=== PATIENT | female | born 1970 | race American Indian/Alaskan Native ===

== ENCOUNTER 2017-01-19 15:15 | Emergency (ER) | payer OTHER ==
[2017-01-19 15:46] VITALS: BP 120/84
--- NOTE | 2017-01-19 22:45 | Emergency Department Report ---
Entered by RUTH STERN, acting as scribe for ELSA BURTON NP. - General Chief complaint: Skin/Abscess/Foreign Body Stated complaint: INSECT BITE Time Seen by Provider: 01/19/17 17:07 Source: patient Mode of arrival: Ambulatory Limitations: No Limitations - History of Present Illness Initial comments: This is a 46 year old female nontoxic, well nourished in appearance, no acute signs of distress, with no significant presents to ED with c/o bump in the medial lower eyelid. Patient stated symptoms occurred 2.5 weeks when it was bigger and now decreased in size but is still there. Patient denies any trauma. Patient denies any blurry vision, pus, drainage, fever, chills, headache, dizziness, chest pain, injury, or SOB. Patient is allergic to ASA. MD complaint: other (cyst) -: week(s) (2.5) Tetanus Up to Date: unsure Location: face (medial lower eyelid) Severity: moderate Severity scale (0 -10): 4 Quality: constant Consistency: constant Improves with: none Worsens with: none Context: none Associated symptoms: denies other symptoms Treatments Prior to Arrival: none - Related Data Home Medications Medication Instructions Recorded Confirmed Last Taken Sulfamethoxazole/Trimethoprim 1 each PO BID 11/21/16 11/21/16 11/20/16 [Sulfamethoxazole-Tmp Ss Tablet] Allergies Allergy/AdvReac Type Severity Reaction Status Date / Time aspirin Allergy Nausea Verified 11/15/16 10:58 Abscess Boil HPI - HPI Chief Complaint: Skin/Abscess/Foreign Body Stated Complaint: INSECT BITE Time Seen by Provider: 01/19/17 17:07 Home Medications: Home Medications Medication Instructions Recorded Confirmed Last Taken Sulfamethoxazole/Trimethoprim 1 each PO BID 11/21/16 11/21/16 11/20/16 [Sulfamethoxazole-Tmp Ss Tablet] Allergies/Adverse Reactions: Allergies Allergy/AdvReac Type Severity Reaction Status Date / Time aspirin Allergy Nausea Verified 11/15/16 10:58 ED Review of Systems Comment: All other systems reviewed and negative Constitutional: denies: chills, fever, weakness Eyes: eye pain. denies: eye discharge, vision change ENT: denies: ear pain, throat pain Respiratory: denies: cough, shortness of breath, wheezing Cardiovascular: denies: chest pain, palpitations Endocrine: no symptoms reported Gastrointestinal: denies: abdominal pain, nausea, vomiting, diarrhea Genitourinary: denies: urgency, dysuria, discharge Musculoskeletal: denies: back pain, joint swelling, arthralgia Skin: denies: rash, lesions Neurological: denies: headache, weakness, paresthesias Psychiatric: denies: anxiety, depression Hematological/Lymphatic: denies: easy bleeding, easy bruising ED Past Medical Hx - Past Medical History Hx Congestive Heart Failure: No Hx Diabetes: No Hx Arthritis: Yes (wrists) Hx Headaches / Migraines: Yes (migraines) Hx Seizures: Yes ("convulsion" years ago) Hx Asthma: No Hx COPD: No Hx HIV: No - Social History Smoking Status: Never Smoker Substance Use Type: None - Medications Home Medications: Home Medications Medication Instructions Recorded Confirmed Last Taken Type Sulfamethoxazole/Trimethoprim 1 each PO BID 11/21/16 11/21/16 11/20/16 History [Sulfamethoxazole-Tmp Ss Tablet] ED Physical Exam - General Limitations: No Limitations General appearance: alert, in no apparent distress - Head Head exam: Present: atraumatic, normocephalic - Eye Eye exam: Present: normal appearance, PERRL, EOMI. Absent: scleral icterus, conjunctival injection, nystagmus, periorbital swelling, periorbital tenderness Pupils: Present: normal accommodation. Absent: irregular - ENT ENT exam: Present: normal exam, normal orophraynx, mucous membranes moist, TM's normal bilaterally, normal external ear exam - Neck Neck exam: Present: normal inspection, full ROM. Absent: tenderness, meningismus, lymphadenopathy, thyromegaly - Respiratory Respiratory exam: Present: normal lung sounds bilaterally. Absent: respiratory distress, wheezes, rales, rhonchi, stridor, chest wall tenderness, accessory muscle use, decreased breath sounds, prolonged expiratory - Cardiovascular Cardiovascular Exam: Present: regular rate, normal rhythm, normal heart sounds. Absent: bradycardia, tachycardia, irregular rhythm, systolic murmur, diastolic murmur, rubs, gallop - GI/Abdominal GI/Abdominal exam: Present: soft, normal bowel sounds. Absent: distended, tenderness, guarding, rebound, rigid, diminished bowel sounds - Rectal Rectal exam: Present: deferred - Extremities Exam Extremities exam: Present: normal inspection, full ROM, normal capillary refill. Absent: tenderness, pedal edema, joint swelling, calf tenderness - Back Exam Back exam: Present: normal inspection, full ROM. Absent: tenderness, CVA tenderness (R), CVA tenderness (L), muscle spasm, paraspinal tenderness, vertebral tenderness, rash noted - Neurological Exam Neurological exam: Present: alert, oriented X3, CN II-XII intact, normal gait, reflexes normal - Psychiatric Psychiatric exam: Present: normal affect, normal mood - Skin Skin exam: Present: warm, dry, intact, normal color, other (1 cm fluid filled cyst to medial lower eyelid. Nontender. No pus or drainage. No sign of cellulitis or redness noted.). Absent: rash ED Course Vital Signs 01/19/17 15:42 Temperature 98.6 F Pulse Rate 79 Respiratory 18 Rate Blood Pressure 120/84 O2 Sat by Pulse 100 Oximetry - Reevaluation(s) Reevaluation #1: 01/19/17 18:21 Patient able speak full sentences with no signs of distress. ED Medical Decision Making - Medical Decision Making This is a 46-year-old female presents with cyst medial lower eyelid. There is no surrounding cellulitis or any abscess formation. Exam is consistent with cyst. Patient was notified to follow-up with a primary care doctor 3-5 days or if symptoms worsen such as increase in size, pus, drainage, or visual changes or worsening symptoms return to the ER as soon as possible. Patient was instructed to apply warm compresses. ED Disposition Clinical Impression: Cyst Disposition: DC-01 TO HOME OR SELFCARE Is pt being admited?: No Does the pt Need Aspirin: No Condition: Stable Instructions: Josiahazion (ED) Additional Instructions: follow-up with a primary care doctor 3-5 days or if symptoms worsen such as increase in size, pus, drainage, or visual changes or worsening symptoms return to the ER as soon as possible. Apply warm compressors to area. Referrals: PRIMARY CARE, [Primary Care Provider] - 3-5 Days MATHEUS HERNANDEZ MD [Staff Physician] - 3-5 Days NIRAV LEVINE MD [Staff Physician] - 3-5 Days [facility] [Outside] - 3-5 Days Forms: Work/School Release Form(ED) This documentation as recorded by the LEENA parra PEARL,accurately reflects the service I personally performed and the decisions made by JOSEPHINE chester MARTIN, NP.
== END 2017-01-19 18:29 | disposition home or self-care (01) ==
LOC: ED 15:15
DX: H02.829 Cysts of unspecified eye, unspecified eyelid (principal); Z79.82 Long term (current) use of aspirin; M19.90 Unspecified osteoarthritis, unspecified site; G43.909 Migraine, unspecified, not intractable, without status migrainosus
CPT/HCPCS: 99282

== ENCOUNTER 2022-01-02 10:44 | Inpatient (IN) | payer OTHER ==
[2022-01-02 11:38] LABS: Basophils # (Auto) 0.1 K/mm3 (0.0-0.1); Basophils % (Auto) 0.5 % (0.0-1.8); Eosinophils # (Auto) 0.2 K/mm3 (0.0-0.4); Eosinophils % (Auto) 1.3 % (0.0-4.3); Hematocrit 41.5 % (30.3-42.9); Hemoglobin 13.5 gm/dl (10.1-14.3); Lymphocytes # (Auto) 1.7 K/mm3 (1.2-5.4); Lymphocytes % (Auto) 14.4 % (13.4-35.0); Mean Corpuscular HGB Conc 32 % (30-34); Mean Corpuscular Volume 89 fl (79-97); Monocytes # (Auto) 1.4 K/mm3 (0.0-0.8); Monocytes % (Auto) 11.7 % (0.0-7.3); Platelet Count 308 K/mm3 (140-440); Red Blood Count 4.68 M/mm3 (3.65-5.03); Red Cell Distribution Width 13.9 % (13.2-15.2)
--- NOTE | 2022-01-02 12:01 | XRay Report ---
CHEST 2 VIEWS INDICATION / CLINICAL INFORMATION: chest pain with abd pain. FINDINGS: SUPPORT DEVICES: None. HEART / MEDIASTINUM: No significant abnormality. LUNGS / PLEURA: No significant pulmonary or pleural abnormality. No pneumothorax. ADDITIONAL FINDINGS: No significant additional findings. IMPRESSION: 1. No acute findings. Signer Name: Cornell Gilbert MD Signed: 01/02/2022 11:56 AM Workstation Name: [id number]
[2022-01-02 12:03] LABS: Alanine Aminotransferase 75 units/L (7-56); Albumin 4.6 g/dL (3.9-5); Blood Urea Nitrogen 7 mg/dL (7-17); Calcium 9.6 mg/dL (8.4-10.2); Hemolysis Index 37
[2022-01-02 12:08] LABS: BUN/Creatinine Ratio 10
[2022-01-02] MEDS ORDERED: ONDANSETRON 4 MG/2 ML INJ IV ONE (17:37)
[2022-01-02] MEDS ORDERED: MORPHINE 4 MG/1 ML INJ IV ONE (17:37)
[2022-01-02] MEDS ORDERED: SODIUM CHLORIDE 0.9% 1000 ML 1,000 ML IV ONE (17:37)
--- NOTE | 2022-01-02 17:38 | Emergency Department Report ---
ED General Adult HPI - General Chief complaint: Abdominal Pain Stated complaint: Epigastric abdominal pain and distention Time Seen by Provider: 01/02/22 17:24 Source: patient, RN notes reviewed Mode of arrival: Ambulatory Limitations: No Limitations - History of Present Illness Initial comments: The patient was evaluated in the emergency department for symptoms described in the history of present illness. He/she was evaluated in the context of the g lobal COVID-19 pandemic, which necessitated consideration that the patient might be at risk for infection with the virus that causes COVID-19. Institutional protocols and algorithms that pertain to the evaluation of patients at risk for COVID-19 are in a state of rapid change based on information released by regulatory bodies including the CDC and federal and state organizations. These policies and algorithms were followed during the patient's care in the emergency department. Please note that these policies, procedures and recommendations changed on a rapid basis. This is a pleasant and cooperative 51-year-old female who presents to the department today with complaint of diffuse abdominal pain, distention, nausea, with epigastric burning. Denies headache, neck pain, shortness of breath, dysuria, travel, surgery, immobilization, DVT and pulmonary embolism risk factors. Distant history of hysterectomy. Symptoms present for about 3 days -: days(s) Location: abdomen Severity scale (0 -10): 8 Consistency: constant Improves with: medication Worsens with: movement - Related Data Allergies Allergy/AdvReac Type Severity Reaction Status Date / Time aspirin Allergy Nausea Verified 01/02/22 11:12 ED Review of Systems ROS: Stated complaint: CHEST/STOMACH PAIN Other details as noted in HPI Constitutional: denies: fever Eyes: denies: eye discharge ENT: denies: epistaxis Respiratory: denies: cough Cardiovascular: denies: syncope Gastrointestinal: abdominal pain, nausea, vomiting Genitourinary: denies: dysuria Musculoskeletal: denies: back pain Neurological: denies: weakness Hematological/Lymphatic: denies: easy bleeding ED Past Medical Hx - Past Medical History Previous Medical History?: Yes Additional medical history: Uterine fibroids - Surgical History Past Surgical History?: Yes Additional Surgical History: Hysterectomy ED Physical Exam - General Limitations: No Limitations General appearance: alert, in no apparent distress - Head Head exam: Present: atraumatic, normocephalic - Eye Eye exam: Present: normal appearance, EOMI. Absent: nystagmus - ENT ENT exam: Present: normal exam, normal orophraynx, mucous membranes moist, normal external ear exam - Neck Neck exam: Present: normal inspection, full ROM. Absent: tenderness, meningismus - Respiratory Respiratory exam: Present: normal lung sounds bilaterally. Absent: respiratory distress, wheezes, rales, rhonchi, stridor, decreased breath sounds - Cardiovascular Cardiovascular Exam: Present: regular rate, normal rhythm, normal heart sounds. Absent: bradycardia, tachycardia, irregular rhythm, systolic murmur, diastolic murmur, rubs, gallop - GI/Abdominal GI/Abdominal exam: Present: soft, distended, tenderness, guarding, rebound. Absent: pulsatile mass - Extremities Exam Extremities exam: Present: normal inspection, full ROM, other (2+ pulses noted in the bilateral upper and lower extremities. There is no palpable cord. negative Homans sign. Muscular compartments are soft. The pelvis is stable.). Absent: pedal edema, calf tenderness - Back Exam Back exam: Present: normal inspection. Absent: tenderness, CVA tenderness (R), CVA tenderness (L), paraspinal tenderness, vertebral tenderness - Neurological Exam Neurological exam: Present: alert, oriented X3, other (No facial droop. Tongue midline. Extraocular movements intact bilaterally. Facial sensation intact to light touch in V1, V2, V3 distribution bilaterally. 5 and a 5 strength in 4 extremities. Sensation intact to light touch in 4 extremities.). Absent: motor sensory deficit - Psychiatric Psychiatric exam: Present: anxious - Skin Skin exam: Present: warm, dry, intact, normal color. Absent: rash ED Course Vital Signs 01/02/22 01/02/22 01/02/22 11:15 13:22 13:31 Temperature 98.2 F Pulse Rate 108 H Respiratory 22 Rate Blood Pressure 125/72 133/49 Blood Pressure 113/68 [Right] O2 Sat by Pulse 99 99 100 Oximetry 01/02/22 01/02/22 01/02/22 13:45 14:00 14:15 Temperature Pulse Rate Respiratory Rate Blood Pressure 127/73 123/71 123/87 Blood Pressure [Right] O2 Sat by Pulse 100 100 100 Oximetry 01/02/22 01/02/22 01/02/22 14:30 14:45 15:00 Temperature Pulse Rate Respiratory Rate Blood Pressure 123/87 119/76 117/80 Blood Pressure [Right] O2 Sat by Pulse 99 100 100 Oximetry 01/02/22 01/02/22 01/02/22 15:15 15:30 15:45 Temperature Pulse Rate Respiratory Rate Blood Pressure 131/68 131/68 123/72 Blood Pressure [Right] O2 Sat by Pulse 100 100 100 Oximetry 01/02/22 01/02/22 01/02/22 16:00 17:31 17:40 Temperature Pulse Rate 90 Respiratory 18 18 Rate Blood Pressure 116/65 Blood Pressure 116/65 [Right] O2 Sat by Pulse 100 100 100 Oximetry 01/02/22 01/02/22 01/02/22 18:00 19:59 20:00 Temperature Pulse Rate 90 81 Respiratory 18 18 Rate Blood Pressure 116/65 Blood Pressure 102/72 [Right] O2 Sat by Pulse 100 97 Oximetry - Reevaluation(s) Reevaluation #1: 01/02/22 18:49 Differential diagnosis, include but not limited to: Colitis, diverticulitis, obstruction, appendicitis, renal colic, perforated viscus Assessment and plan: 51-year-old female with diffuse abdominal pain, distention, nausea, very tender diffusely, most prominently in her right lower quadrant. N.p.o., head of bed elevation, aspiration precautions, obtain CT scan of the abdomen pelvis. Treat patient's symptoms aggressively. We discussed and reassess after initial data points and CT scan. I discussed this with the patient. She is agreeable to the plan of care. She is not tachypneic or hypoxic, she is low risk by Wells criteria for pulmonary embolism, and she endorses no DVT or PE risk factors. Denies exertional chest pain to myself, symptoms present for days, troponin negative x2, patient at low risk for major adverse cardiac event as per heart score 01/02/22 19:41 Patient is found to have evidence of acute cholecystitis on CT scan abdomen pelvis. This correlates with her physical examination and history. Antibiotics ordered. General surgery paged. Patient declines additional pain medication 01/02/22 20:20 patient is agreeable to admission and hospitalization. Additional pain medication ordered. Contacted general surgery on-call, Dr. Bartlett. Discussed the patient's history, physical, laboratory studies and imaging studies and clinical impression. He is in agreement with the plan of care. He will follow in consultation. Request lipase and amylase. We agree that ultrasound is unlikely to be of any clinical utility at this time. 01/02/22 20:[address] Miguel Sandhu, who will endorse cases to night time hospitalist ED Medical Decision Making - Lab Data Result diagrams: 01/02/22 11:26 01/02/22 11:26 Vital Signs 01/02/22 01/02/22 01/02/22 11:15 13:22 13:31 Temperature 98.2 F Pulse Rate 108 H Respiratory 22 Rate Blood Pressure 125/72 133/49 Blood Pressure 113/68 [Right] O2 Sat by Pulse 99 99 100 Oximetry 01/02/22 01/02/22 01/02/22 13:45 14:00 14:15 Temperature Pulse Rate Respiratory Rate Blood Pressure 127/73 123/71 123/87 Blood Pressure [Right] O2 Sat by Pulse 100 100 100 Oximetry 01/02/22 01/02/22 01/02/22 14:30 14:45 15:00 Temperature Pulse Rate Respiratory Rate Blood Pressure 123/87 119/76 117/80 Blood Pressure [Right] O2 Sat by Pulse 99 100 100 Oximetry 01/02/22 01/02/22 01/02/22 15:15 15:30 15:45 Temperature Pulse Rate Respiratory Rate Blood Pressure 131/68 131/68 123/72 Blood Pressure [Right] O2 Sat by Pulse 100 100 100 Oximetry 01/02/22 01/02/22 01/02/22 16:00 17:31 17:40 Temperature Pulse Rate 90 Respiratory 18 18 Rate Blood Pressure 116/65 Blood Pressure 116/65 [Right] O2 Sat by Pulse 100 100 100 Oximetry 01/02/22 18:00 Temperature Pulse Rate 90 Respiratory 18 Rate Blood Pressure 116/65 Blood Pressure [Right] O2 Sat by Pulse 100 Oximetry Lab Results 01/02/22 01/02/22 01/02/22 Range/Units 11:26 11:26 14:25 WBC 11.8 H (4.5-11.0) K/mm3 RBC 4.68 (3.65-5.03) M/mm3 Hgb 13.5 (10.1-14.3) gm/dl Hct 41.5 (30.3-42.9) % MCV 89 (79-97) fl MCH 29 (28-32) pg MCHC 32 (30-34) % RDW 13.9 (13.2-15.2) % Plt Count 308 (140-440) K/mm3 Lymph % (Auto) 14.4 (13.4-35.0) % [place] % (Auto) 11.7 H (0.0-7.3) % Eos % (Auto) 1.3 (0.0-4.3) % Baso % (Auto) 0.5 (0.0-1.8) % Lymph # (Auto) 1.7 (1.2-5.4) K/mm3 [place] # (Auto) 1.4 H (0.0-0.8) K/mm3 Eos # (Auto) 0.2 (0.0-0.4) K/mm3 Baso # (Auto) 0.1 (0.0-0.1) K/mm3 Seg Neutrophils % 72.1 H (40.0-70.0) % Seg Neutrophils # 8.5 H (1.8-7.7) K/mm3 Sodium 131 L (137-145) mmol/L Potassium 3.6 (3.6-5.0) mmol/L Chloride 92.1 L (98-107) mmol/L Carbon Dioxide 29 (22-30) mmol/L Anion Gap 14 mmol/L BUN 7 (7-17) mg/dL Creatinine 0.7 (0.6-1.2) mg/dL Estimated GFR > 60 ml/min BUN/Creatinine Ratio 10 % Glucose 134 H (65-100) mg/dL Calcium 9.6 (8.4-10.2) mg/dL Total Bilirubin 0.80 (0.1-1.2) mg/dL AST 73 H (5-40) units/L ALT 75 H (7-56) units/L Alkaline Phosphatase 125 (35-129) units/L Troponin T < 0.010 < 0.010 (0.00-0.029) ng/mL Total Protein 7.6 (6.3-8.2) g/dL Albumin 4.6 (3.9-5) g/dL Albumin/Globulin Ratio 1.5 % Urine RBC (Auto) (0.0-6.0) /HPF U Epithel Cells (Auto) (0-13.0) /HPF 01/02/22 Range/Units 17:37 WBC (4.5-11.0) K/mm3 RBC (3.65-5.03) M/mm3 Hgb (10.1-14.3) gm/dl Hct (30.3-42.9) % MCV (79-97) fl MCH (28-32) pg MCHC (30-34) % RDW (13.2-15.2) % Plt Count (140-440) K/mm3 Lymph % (Auto) (13.4-35.0) % [place] % (Auto) (0.0-7.3) % Eos % (Auto) (0.0-4.3) % Baso % (Auto) (0.0-1.8) % Lymph # (Auto) (1.2-5.4) K/mm3 [place] # (Auto) (0.0-0.8) K/mm3 Eos # (Auto) (0.0-0.4) K/mm3 Baso # (Auto) (0.0-0.1) K/mm3 Seg Neutrophils % (40.0-70.0) % Seg Neutrophils # (1.8-7.7) K/mm3 Sodium (137-145) mmol/L Potassium (3.6-5.0) mmol/L Chloride (98-107) mmol/L Carbon Dioxide (22-30) mmol/L Anion Gap mmol/L BUN (7-17) mg/dL Creatinine (0.6-1.2) mg/dL Estimated GFR ml/min BUN/Creatinine Ratio % Glucose (65-100) mg/dL Calcium (8.4-10.2) mg/dL Total Bilirubin (0.1-1.2) mg/dL AST (5-40) units/L ALT (7-56) units/L Alkaline Phosphatase (35-129) units/L Troponin T (0.00-0.029) ng/mL Total Protein (6.3-8.2) g/dL Albumin (3.9-5) g/dL Albumin/Globulin Ratio % Urine RBC (Auto) 2.0 (0.0-6.0) /HPF U Epithel Cells (Auto) 1.0 (0-13.0) /HPF - EKG Data -: EKG Interpreted by Pa EKG shows normal: sinus rhythm Rate: tachycardia - EKG Data When compared to previous EKG there are: previous EKG unavailable 01/02/22 18:48 The EKG is interpreted at 11: 01 Sinus rhythm, tachycardia, 100 bpm. PVCs, normal axis, normal P wave axis, atrial enlargement, QTC 4 4 8 ms. Abnormal EKG. Not a STEMI - Radiology Data Radiology results: pending, report reviewed, image reviewed CHEST 2 VIEWS INDICATION / CLINICAL INFORMATION: chest pain with abd pain. FINDINGS: SUPPORT DEVICES: None. HEART / MEDIASTINUM: No significant abnormality. LUNGS / PLEURA: No significant pulmonary or pleural abnormality. No pneumothorax. ADDITIONAL FINDINGS: No significant additional findings. IMPRESSION: 1. No acute findings. Signer Name: Cornell Gilbert MD Signed: 01/02/2022 10:56 AM Workstation Name: [employer] [facility] [address] [place] [address] Cat Scan Report Signed Patient: ARUN NG MR#: [id number] 57 : 1970 Acct:[id number] Age/Sex: 51 / F ADM Date: 01/02/22 Loc: ED Attending Dr: Ordering Physician: MIA AUGUSTINE MD Date of Service: 01/02/22 Procedure(s): CT abdomen pelvis w con Accession Number(s): [id number] cc: MIA AUGUSTINE MD CT ABDOMEN AND PELVIS WITH IV CONTRAST INDICATION: Acute abdominal pain with nausea and. COMPARISON: None available. TECHNIQUE: Axial CT images were obtained through the abdomen and pelvis after 100 mL Omnipaque [address] scans at this location are performed using CT dose reduction for ALARA by means of automated exposure control. FINDINGS -- ABDOMEN: Lung Bases: Scattered subsegmental atelectasis. Liver: Normal. Gallbladder: Grossly abnormal with enhancement of the gallbladder wall and prominent pericholecystic edema suspected gallbladder sludge/tiny gallstones near the gallbladder neck no significant intraextra hepatic biliary dilatation. Bile Ducts: See above. Pancreas: Normal. Spleen: Normal. Adrenals: Normal. Right Kidney and Proximal Ureter: Normal. Left Kidney and Proximal Ureter: Normal. Stomach and Bowel: Normal. Lymph Nodes: No significant adenopathy. Aorta: Mild scattered atherosclerotic disease of the abdominal aorta. IVC: Normal. Additional Findings: None. FINDINGS -- PELVIS: Urinary Bladder and Distal Ureters: Normal. Reproductive Organs: No acute abnormality. Appendix: Normal. Bowel: No acute abnormality. Free Fluid: Small free pelvic fluid. Lymph Nodes: No significant adenopathy. Additional Findings: Small fat-containing periumbilical hernia.. Skeletal System: No acute abnormality. IMPRESSION: Acute cholecystitis, as described above. Signer Name: Cornell Gilbert MD Signed: 01/02/2022 7:26 PM Workstation Name: [id number] Transcribed By: Dictated By: Cornell Gilbert MD Electronically Authenticated By: Cornell Gilbert MD Signed Date/Time: 01/02/221925 DD/ 18 TD/TT: Critical care attestation.: If time is entered above; I have spent that time in minutes in the direct care of this critically ill patient, excluding procedure time. ED Disposition Clinical Impression: Acute abdominal pain, Transaminitis, Acute cholecystitis Disposition: ADMITTED INPATIENT Is pt being admited?: Yes Does the pt Need Aspirin: No Condition: Good Instructions: Abdominal Pain (ED) Referrals: ONOFRE INIGUEZ MD [Primary Care Provider] - 3-5 Days
[2022-01-02 18:36] LABS: Bacteria,Urine 1+ /HPF (Negative)
[2022-01-02 19:12] LABS: Bilirubin,Urine Negative (Negative); Blood,Urine Negative (Negative); Color,Urine Yellow (Yellow); Protein,Urine <15 mg/dL mg/dL (Negative); Urobilinogen,Urine < 2.0 mg/dL (<2.0)
--- NOTE | 2022-01-02 19:30 | Cat Scan Report ---
CT ABDOMEN AND PELVIS WITH IV CONTRAST INDICATION: Acute abdominal pain with nausea and. COMPARISON: None available. TECHNIQUE: Axial CT images were obtained through the abdomen and pelvis after 100 mL Omnipaque [address] scans at this location are performed using CT dose reduction for ALARA by means of automated e xposure control. FINDINGS -- ABDOMEN: Lung Bases: Scattered subsegmental atelectasis. Liver: Normal. Gallbladder: Grossly abnormal with enhancement of the gallbladder wall and prominent pericholecystic edema suspected gallbladder sludge/tiny gallstones near the gallbladder neck no significant intraextr a hepatic biliary dilatation. Bile Ducts: See above. Pancreas: Normal. Spleen: Normal. Adrenals: Normal. Right Kidney and Proximal Ureter: Normal. Left Kidney and Proximal Ureter: Normal. Stomach and Bowel: Normal. Lymph Nodes: No significant adenopathy. Aorta: Mild scattered atherosclerotic disease of the abdominal aorta. IVC: Normal. Additional Findings: None. FINDINGS -- PELVIS: Urinary Bladder and Distal Ureters: Normal. Reproductive Organs: No acute abnormality. Appendix: Normal. Bowel: No acute abnormality. Free Fluid: Small free pelvic fluid. Lymph Nodes: No significant adenopathy. Additional Findings: Small fat-containing periumbilical hernia.. Skeletal System: No acute abnormality. IMPRESSION: Acute cholecystitis, as described above. Signer Name: Cornell Gilbert MD Signed: 01/02/2022 7:26 PM Workstation Name: [email or web address]
[2022-01-02] MEDS ORDERED: PIPERACIL/TAZOBACTA 4.5/NS 100 4.5 GM/100 ML VIAL IV ONE (19:39)
[2022-01-02] MEDS ORDERED: HYDROmorphone 0.5 MG/0.5 ML INJ IV ONE (19:51)
[2022-01-02] MEDS ORDERED: ONDANSETRON 4 MG/2 ML INJ IV PRN (21:48)
[2022-01-02] MEDS ORDERED: ACETAMINOPHEN 325 MG TAB PO PRN (21:48)
[2022-01-02] MEDS ORDERED: ALBUTEROL 2.5 MG/3 ML NEBU IH PRN (21:48)
--- NOTE | 2022-01-02 21:55 | History and Physical Report ---
History of Present Illness Date of examination: 01/02/22 Date of admission: 01/02/22 Chief complaint: Abdominal pain History of present illness: 51-year-old female with history of uterine fibroid was brought to the department today with complaint of diffuse abdominal pain, distention, nausea, with epigastric burning. Denies headache, neck pain, shortness of breath, dysuria, travel, surgery, immobilization, DVT and pulmonary embolism risk factors. Patient is found to have evidence of acute cholecystitis on CT scan abdomen pelvis. Subsequently Case was discussed with on-call surgeon who will see the patient in consultation. We also put the patient on IV fluid and IV antibiotic Past History Past Medical History: other (Uterine fibroid) Past Surgical History: hysterectomy Social history: no significant social history Family history: hypertension Medications and Allergies Allergies Allergy/AdvReac Type Severity Reaction Status Date / Time aspirin Allergy Nausea Verified 01/02/22 11:12 Review of Systems All systems: negative Gastrointestinal: abdominal pain, nausea, vomiting Exam - Constitutional Vitals: Temp Pulse Resp BP Pulse Ox 98.2 F 81 18 102/72 97 01/02/22 11:15 01/02/22 19:59 01/02/22 19:59 01/02/22 19:59 01/02/22 20:00 General appearance: Present: no acute distress, well-nourished - EENT Eyes: Present: PERRL ENT: hearing intact, clear oral mucosa - Neck Neck: Present: supple, normal ROM - Respiratory Respiratory effort: normal Respiratory: bilateral: CTA - Cardiovascular Heart Sounds: Present: S1 & S2. Absent: rub, click - Extremities Extremities: pulses symmetrical, No edema Peripheral Pulses: within normal limits - Abdominal General gastrointestinal: Present: soft, non-tender, non-distended, normal bowel sounds Female genitourinary: Present: normal - Integumentary Integumentary: Present: clear, warm, dry - Musculoskeletal Musculoskeletal: gait normal, strength equal bilaterally - Psychiatric Psychiatric: appropriate mood/affect, intact judgment & insight - Neurologic Neurologic: CNII-XII intact, moves all extremities HEART Score - HEART Score Troponin: Troponin T < 0.010 ng/mL (0.00-0.029) 01/02/22 14:25 Results - Labs CBC & Chem 7: 01/02/22 11:26 01/02/22 11:26 Labs: Laboratory Last Values WBC 11.8 K/mm3 (4.5-11.0) H 01/02/22 11:26 RBC 4.68 M/mm3 (3.65-5.03) 01/02/22 11:26 Hgb 13.5 gm/dl (10.1-14.3) 01/02/22 11:26 Hct 41.5 % (30.3-42.9) 01/02/22 11:26 MCV 89 fl (79-97) 01/02/22 11:26 MCH 29 pg (28-32) 01/02/22 11:26 MCHC 32 % (30-34) 01/02/22 11:26 RDW 13.9 % (13.2-15.2) 01/02/22 11:26 Plt Count 308 K/mm3 (140-440) 01/02/22 11:26 Lymph % (Auto) 14.4 % (13.4-35.0) 01/02/22 11:26 [place] % (Auto) 11.7 % (0.0-7.3) H 01/02/22 11:26 Eos % (Auto) 1.3 % (0.0-4.3) 01/02/22 11:26 Baso % (Auto) 0.5 % (0.0-1.8) 01/02/22 11:26 Lymph # (Auto) 1.7 K/mm3 (1.2-5.4) 01/02/22 11:26 [place] # (Auto) 1.4 K/mm3 (0.0-0.8) H 01/02/22 11:26 Eos # (Auto) 0.2 K/mm3 (0.0-0.4) 01/02/22 11:26 Baso # (Auto) 0.1 K/mm3 (0.0-0.1) 01/02/22 11:26 Seg Neutrophils % 72.1 % (40.0-70.0) H 01/02/22 11:26 Seg Neutrophils # 8.5 K/mm3 (1.8-7.7) H 01/02/22 11:26 Sodium 131 mmol/L (137-145) L 01/02/22 11:26 Potassium 3.6 mmol/L (3.6-5.0) 01/02/22 11:26 Chloride 92.1 mmol/L (98-107) L 01/02/22 11:26 Carbon Dioxide 29 mmol/L (22-30) 01/02/22 11:26 Anion Gap 14 mmol/L 01/02/22 11:26 BUN 7 mg/dL (7-17) 01/02/22 11:26 Creatinine 0.7 mg/dL (0.6-1.2) 01/02/22 11:26 Estimated GFR > 60 ml/min 01/02/22 11:26 BUN/Creatinine Ratio 10 % 01/02/22 11:26 Glucose 134 mg/dL (65-100) H 01/02/22 11:26 Calcium 9.6 mg/dL (8.4-10.2) 01/02/22 11:26 Total Bilirubin 0.80 mg/dL (0.1-1.2) 01/02/22 11:26 AST 73 units/L (5-40) H 01/02/22 11:26 ALT 75 units/L (7-56) H 01/02/22 11:26 Alkaline Phosphatase 125 units/L (35-129) 01/02/22 11:26 Troponin T < 0.010 ng/mL (0.00-0.029) 01/02/22 14:25 Total Protein 7.6 g/dL (6.3-8.2) 01/02/22 11:26 Albumin 4.6 g/dL (3.9-5) 01/02/22 11:26 Albumin/Globulin Ratio 1.5 % 01/02/22 11:26 Amylase 40 units/L (27-131) 01/02/22 20:00 Lipase 44 units/L (13-60) 01/02/22 20:00 Urine Color Yellow (Yellow) 01/02/22 17:37 Urine Turbidity Hazy (Clear) 01/02/22 17:37 Urine pH 6.0 (5.0-7.0) 01/02/22 17:37 Ur Specific [place] 1.020 (1.003-1.030) 01/02/22 17:37 Urine Protein <15 mg/dl mg/dL (Negative) 01/02/22 17:37 Urine Glucose (UA) Negative mg/dL (Negative) 01/02/22 17:37 Urine Ketones Negative mg/dL (Negative) 01/02/22 17:37 Urine Blood Negative (Negative) 01/02/22 17:37 Urine Nitrite Negative (Negative) 01/02/22 17:37 Ur Reducing Substances Not Reportable 01/02/22 17:37 Urine Bilirubin Negative (Negative) 01/02/22 17:37 Urine Ictotest Not Reportable 01/02/22 17:37 Urine Urobilinogen < 2.0 mg/dL (<2.0) 01/02/22 17:37 Ur Leukocyte Esterase Negative (Negative) 01/02/22 17:37 Urine WBC (Auto) 2.0 /HPF (0.0-6.0) 01/02/22 17:37 Urine RBC (Auto) 2.0 /HPF (0.0-6.0) 01/02/22 17:37 U Epithel Cells (Auto) 1.0 /HPF (0-13.0) 01/02/22 17:37 Urine Bacteria (Auto) 1+ /HPF (Negative) 01/02/22 17:37 - Imaging and Cardiology CT scan - abdomen: report reviewed Assessment and Plan VTE prophylaxis?: Chemical Plan of care discussed with patient/family: Yes - Patient Problems (1) Acute cholecystitis Current Visit: Yes Status: Acute Plan to address problem: Admit the patient to the medical floor. NPO. D5 half-normal saline at the rate of 100 cc per hour. Pepcid 20 mg IV every 12 hours. Zosyn 4.5 g IV every 8 hours. Surgery consultation. Recheck CBC CMP in the morning (2) Acute abdominal pain Current Visit: Yes Status: Acute Plan to address problem: NPO. D5 half-normal saline at the rate of 100 cc per hour. Pepcid 20 mg IV every 12 hours. Zosyn 4.5 g IV every 8 hours. Surgery consultation. Recheck CBC CMP in the morning (3) Transaminitis Current Visit: Yes Status: Acute Plan to address problem: NPO. D5 half-normal saline at the rate of 100 cc per hour. Pepcid 20 mg IV every 12 hours. Recheck CBC CMP in the morning. Surgery evaluation. Consult GI if needed (4) Uterine fibroid Current Visit: Yes Status: Acute Plan to address problem: Stable. Outpatient follow-up with [facility] (5) DVT prophylaxis Current Visit: Yes Status: Acute Plan to address problem: Heparin 5000 units subcu every 12 hours for DVT prophylaxis. Pepcid 20 mg IV every 12 hours for GI prophylaxis. Patient is a full code
[2022-01-02] MEDS ORDERED: HEPARIN 5,000 UNIT/1 ML VIAL SUB-Q SCH (22:00)
[2022-01-02] MEDS ORDERED: D5W/0.45% NACL 1,000 ML IV SCH (22:00)
[2022-01-02] MEDS: FAMOTIDINE 20 MG/2 ML INJ IV SCH (23:11)
[2022-01-03] MEDS: IPRATROPIUM/ALBUTEROL SULFATE 3 ML AMPUL.NEB IH SCH ×3 (02:48→14:13)
[2022-01-03] MEDS: MORPHINE 2 MG/1 ML INJ IV PRN ×2 (03:58→21:15)
[2022-01-03] MEDS: PIPERACIL/TAZOBACTA 4.5/NS 100 4.5 GM/100 ML VIAL IV SCH ×2 (04:26→15:31)
[2022-01-03 06:32] LABS: Basophils % (Auto) 0.5 % (0.0-1.8); Eosinophils # (Auto) 0.2 K/mm3 (0.0-0.4); Eosinophils % (Auto) 2.3 % (0.0-4.3); Hematocrit 32.5 % (30.3-42.9); Hemoglobin 10.8 gm/dl (10.1-14.3); Lymphocytes # (Auto) 1.5 K/mm3 (1.2-5.4); Lymphocytes % (Auto) 16.4 % (13.4-35.0); Mean Corpuscular HGB Conc 33 % (30-34); Mean Corpuscular Volume 89 fl (79-97); Monocytes # (Auto) 1.1 K/mm3 (0.0-0.8); Monocytes % (Auto) 12.2 % (0.0-7.3); Platelet Count 240 K/mm3 (140-440); Red Blood Count 3.67 M/mm3 (3.65-5.03); Red Cell Distribution Width 13.8 % (13.2-15.2)
[2022-01-03 06:50] LABS: Blood Urea Nitrogen 6 mg/dL (7-17); Calcium 8.6 mg/dL (8.4-10.2); Hemolysis Index 5
[2022-01-03 06:54] LABS: BUN/Creatinine Ratio 9
--- NOTE | 2022-01-03 07:21 | Consultation ---
History of Present Illness Consult date: 01/03/22 Reason for consult: abdominal pain Requesting physician: YOLIE SOLORIO - History of present illness History of present illness: 51-year-old female with history of uterine fibroid was brought to the department today with complaint of diffuse abdominal pain, distention, nausea, with epigastric burning. Denies headache, neck pain, shortness of breath, dysuria, travel, surgery, immobilization, DVT and pulmonary embolism risk factors. Patient is found to have evidence of acute cholecystitis on CT scan abdomen pelvis. Surgical consult is for mx of acute cholecystitis. Patient continues to have significant amounts of right upper quadrant pain despite being n.p.o. WBC count is improved from 11,800 to 8900. Total bilirubin is normal slight elevation in AST and ALT are noted. Continue antibiotics n.p.o. consider laparoscopic cholecystectomy this admission. Past History Past Medical History: other (Uterine fibroid) Past Surgical History: hysterectomy Social history: no significant social history Family history: hypertension Medications and Allergies Allergies Allergy/AdvReac Type Severity Reaction Status Date / Time aspirin Allergy Nausea Verified 01/02/22 11:12 Home Medications Medication Instructions Recorded Confirmed Last Taken Type No Known Home Medications [No 01/03/22 01/03/22 Unknown History Reported Home Medications] Active Meds: Active Medications Acetaminophen (Acetaminophen 325 Mg Tab) 650 mg PO Q4H PRN PRN Reason: Pain MILD(1-3)/Fever >100.5/WOOD Albuterol (Albuterol 2.5 Mg/3 Ml Nebu) 2.5 mg IH Q3HRT PRN PRN Reason: Shortness Of Breath Albuterol/Ipratropium (Ipratropium/Albuterol Sulfate 3 Ml Ampul.Neb) 1 ampul IH Q6HRT [facility] Last Admin: 01/03/22 02:48 Dose: Not Given Famotidine (Famotidine 20 Mg/2 Ml Inj) 20 mg IV BID [facility] Last Admin: 01/02/22 23:11 Dose: 20 mg Heparin Sodium (Porcine) (Heparin 5,000 Unit/1 Ml Vial) 5,000 unit SUB-Q Q12HR [facility] Last Admin: 01/02/22 23:09 Dose: 5,000 unit Dextrose/Sodium Chloride (D5/0.45ns) 1,000 mls @ 100 mls/hr IV DIRECT [facility] Last Admin: 01/03/22 03:58 Dose: 100 mls/hr Piperacillin Sod/Tazobactam Sod (Zosyn/Ns 4.5gm/100ml) 4.5 gm in 100 mls @ 200 mls/hr IV Q8H [facility]; Protocol Last Admin: 01/03/22 04:26 Dose: 200 mls/hr Morphine Sulfate (Morphine 2 Mg/1 Ml Inj) 2 mg IV Q4H PRN PRN Reason: Pain, Moderate (4-6) Last Admin: 01/03/22 03:58 Dose: 2 mg Morphine Sulfate (Morphine 4 Mg/1 Ml Inj) 4 mg IV Q4H PRN PRN Reason: Pain , Severe (7-10) Ondansetron HCl (Ondansetron 4 Mg/2 Ml Inj) 4 mg IV Q8H PRN PRN Reason: Nausea And Vomiting Sodium Chloride (Sodium Chloride 0.9% 10 Ml Flush Syringe) 10 ml IV BID [facility] Last Admin: 01/02/22 23:12 Dose: 10 ml Sodium Chloride (Sodium Chloride 0.9% 10 Ml Flush Syringe) 10 ml IV PRN PRN PRN Reason: LINE FLUSH Exam Vital Signs Temp Pulse Resp BP Pulse Ox 98.2 F 108 H 22 113/68 99 01/02/22 11:15 01/02/22 11:15 01/02/22 11:15 01/02/22 11:15 01/02/22 11:15 - General physical appearance Positive: well developed, moderate distress - Eyes Positive: PERRL - Neck Positive: no masses, no bruits, trachea midline - Respiratory Positive: normal expansion - Cardiovascular Rhythm: regular - Extremities Extremities: no ischemia, No edema - Abdomen Abdomen: Present: soft, tender (Tenderness noted all 4 quadrants most signi ficant right side of abdomen) - Integumentary no rash - Neurologic Neurologic: alert and oriented to time, place and person, motor strength and sensation are grossly intact, CN II-XII intact Results - Labs 01/03/22 06:00 01/03/22 06:00 Abnormal lab results 01/02/22 01/02/22 01/03/22 Range/Units 11:26 11:26 06:00 WBC 11.8 H (4.5-11.0) K/mm3 [place] % (Auto) 11.7 H 12.2 H (0.0-7.3) % [place] # (Auto) 1.4 H 1.1 H (0.0-0.8) K/mm3 Seg Neutrophils % 72.1 H (40.0-70.0) % Seg Neutrophils # 8.5 H (1.8-7.7) K/mm3 Sodium 131 L (137-145) mmol/L Potassium (3.6-5.0) mmol/L Chloride 92.1 L (98-107) mmol/L BUN (7-17) mg/dL Glucose 134 H (65-100) mg/dL AST 73 H (5-40) units/L ALT 75 H (7-56) units/L 01/03/22 Range/Units 06:00 WBC (4.5-11.0) K/mm3 [place] % (Auto) (0.0-7.3) % [place] # (Auto) (0.0-0.8) K/mm3 Seg Neutrophils % (40.0-70.0) % Seg Neutrophils # (1.8-7.7) K/mm3 Sodium (137-145) mmol/L Potassium 3.1 L (3.6-5.0) mmol/L Chloride (98-107) mmol/L BUN 6 L (7-17) mg/dL Glucose 123 H (65-100) mg/dL AST (5-40) units/L ALT (7-56) units/L Diabetes panel 01/02/22 01/03/22 Range/Units 11:26 06:00 Sodium 131 L 138 D (137-145) mmol/L Potassium 3.6 3.1 L (3.6-5.0) mmol/L Chloride 92.1 L 101.7 (98-107) mmol/L Carbon Dioxide 29 25 (22-30) mmol/L BUN 7 6 L (7-17) mg/dL Creatinine 0.7 0.7 (0.6-1.2) mg/dL Glucose 134 H 123 H (65-100) mg/dL Calcium 9.6 8.6 (8.4-10.2) mg/dL AST 73 H (5-40) units/L ALT 75 H (7-56) units/L Alkaline Phosphatase 125 (35-129) units/L Total Protein 7.6 (6.3-8.2) g/dL Albumin 4.6 (3.9-5) g/dL Calcium panel 01/02/22 01/03/22 Range/Units 11: 06:00 Calcium 9.6 8.6 (8.4-10.2) mg/dL Albumin 4.6 (3.9-5) g/dL Pituitary panel 01/02/22 01/03/22 Range/Units 11: 06:00 Sodium 131 L 138 D (137-145) mmol/L Potassium 3.6 3.1 L (3.6-5.0) mmol/L Chloride 92.1 L 101.7 (98-107) mmol/L Carbon Dioxide 29 25 (22-30) mmol/L BUN 7 6 L (7-17) mg/dL Creatinine 0.7 0.7 (0.6-1.2) mg/dL Glucose 134 H 123 H (65-100) mg/dL Calcium 9.6 8.6 (8.4-10.2) mg/dL Adrenal panel 01/02/22 01/03/22 Range/Units 11: 06:00 Sodium 131 L 138 D (137-145) mmol/L Potassium 3.6 3.1 L (3.6-5.0) mmol/L Chloride 92.1 L 101.7 (98-107) mmol/L Carbon Dioxide 29 25 (22-30) mmol/L BUN 7 6 L (7-17) mg/dL Creatinine 0.7 0.7 (0.6-1.2) mg/dL Glucose 134 H 123 H (65-100) mg/dL Calcium 9.6 8.6 (8.4-10.2) mg/dL Total Bilirubin 0.80 (0.1-1.2) mg/dL AST 73 H (5-40) units/L ALT 75 H (7-56) units/L Alkaline Phosphatase 125 (35-129) units/L Total Protein 7.6 (6.3-8.2) g/dL Albumin 4.6 (3.9-5) g/dL Assessment and Plan Patient continues to have significant amounts of right upper quadrant pain despite being n.p.o. WBC count is improved from 11,800 to 8900. Total bilirubin is normal slight elevation in AST and ALT are noted. Continue antibiotics n.p.o. consider laparoscopic cholecystectomy this admission.
--- NOTE | 2022-01-03 09:47 | Electrocardiograph Report ---
[facility] Test Date: 2022-01-02 Test Time: 11:01:53 Pat Name: ARUN NG Department: Room: A486 Gender: F Speech Therapy Assistant: SUHAIL : 1970 Requested By: ED DOC Order Number: [id number] Reading MD: Matt Spears Measurements Intervals [place] Rate: 100 P: 66 ME: 133 QRS: 60 QRSD: 76 T: 31 QT: 342 QTc: 448 Interpretive Statements Sinus tachycardia Paired ventricular premature complexes LAE, consider biatrial enlargement No previous ECG available for comparison Electronically Signed On 01-03-2022 9:47:25 EDT by Matt Spears
[2022-01-03] MEDS: FAMOTIDINE 20 MG/2 ML INJ IV SCH ×3 (10:06→21:15)
[2022-01-03] MEDS: MORPHINE 4 MG/1 ML INJ IV PRN ×2 (10:06→18:00)
[2022-01-03] MEDS: POTASSIUM CHLORIDE 10 MEQ 10 MEQ/100 ML BAG IV SCH ×2 (10:06→18:30)
[2022-01-03] MEDS ORDERED: dexAMETHasone 20 MG/5 ML VIAL ONE (10:24)
[2022-01-03] MEDS ORDERED: propofoL 200 MG/20 ML VIAL IV ONE (10:24)
[2022-01-03] MEDS ORDERED: ONDANSETRON 4 MG/2 ML INJ ONE (10:24)
[2022-01-03] MEDS ORDERED: HYDROmorphone 1 MG/1 ML INJ ONE (10:24)
[2022-01-03] MEDS ORDERED: KETOROLAC 30 MG/1 ML INJ ONE (10:24)
[2022-01-03] MEDS ORDERED: LIDOCAINE MPF (2%) 20 MG/1 ML VIAL 5 ML ONE (10:24)
[2022-01-03] MEDS ORDERED: ROCURONIUM 50 MG/5 ML INJ IV ONE (10:24)
[2022-01-03] MEDS ORDERED: fentaNYL 100 MCG/2 ML INJ ONE (10:25)
[2022-01-03] MEDS ORDERED: LACTATED RINGERS 1,000 ML ONE (10:38)
--- NOTE | 2022-01-03 10:47 | Anesthesia Consultation ---
Anesthesia Consult and Med Hx Date of service: 01/03/22 - Airway Anesthetic Teeth Evaluation: Edentulous ROM Head & Neck: Adequate Mental/Hyoid Distance: Adequate Mallampati Class: Class I Intubation Access Assessment: Probably Good - Pulmonary Exam CTA: Yes - Cardiac Exam Cardiac Exam: RRR - Pre-Operative Health Status ASA Pre-Surgery Classification: ASA2 Proposed Anesthetic Plan: General - Pulmonary Hx Smoking: Yes (quit 10 years) Hx Asthma: No Hx Respiratory Symptoms: Yes (occasional cough) SOB: Yes (recent) COPD: No Home Oxygen Therapy: No Hx Pneumonia: No Hx Sleep Apnea: No - Cardiovascular System Hx Hypertension: No Hx Coronary Artery Disease: No Hx Heart Attack/AMI: No Hx Angina: No Hx Percutaneous Transluminal Coronary Angioplasty (PTCA): No Hx Cardia Arrhythmia: No Hx Pacemaker: No Hx Internal Defibrillator: No Hx Valvular Heart Disease: No Hx Heart Murmur: No Hx Peripheral Vascular Disease: No - Central Nervous System Hx Neuromuscular Disorder: No Hx Seizures: Yes (associated with heavy ETOH abuse, 10 years ago) CVA: No Hx Back Pain: No Hx Psychiatric Problems: No - Gastrointestinal Hx Ulcer: No Hx Gastroesophageal Reflux Disease: No - Endocrine Hx Renal Disease: No Hx End Stage Renal Disease: No Hx Cirrhosis: No Hx Liver Disease: No Hx Insulin Dependent Diabetes: No Hx Non-Insulin Dependent Diabetes: No Hx Thyroid Disease: No Hx Hypothyroidism: No Hx Hyperthyroidism: No - Hematic Hx Anemia: No Hx Sickle Cell Disease: No - Other Systems Hx Alcohol Use: No (quit 10 years ago) Hx Substance Use: No (denies) Hx Cancer: Yes Hx Obesity: No
--- NOTE | 2022-01-03 10:49 | Anesthesia Day of Surgery ---
Anesthesia Day of Surgery - Day of Surgery Patient Examined: Yes Patient H&P Reviewed: Yes Patient is NPO: Yes Beta Blockers: No Cardiac Clearance: No (n/a) Pulmonary Clearance: No (n/a)
[2022-01-03] MEDS ORDERED: MIDAZOLAM 2 MG/2 ML INJ ONE (10:55)
[2022-01-03] MEDS ORDERED: LIDOCAINE (1%) 10 MG/1 ML VIAL 20 ML MDV ONE (11:15)
[2022-01-03] MEDS ORDERED: LACTATED RINGERS 1,000 ML IV SCH (11:15)
[2022-01-03] MEDS ORDERED: BUPIVACAINE-EPINEPHRINE/PF 0.5%-1:200,000 (30 ML) VIAL INFILTRATI ONE ×2 (11:15→12:53)
[2022-01-03] MEDS ORDERED: NEOSTIGMINE 10MG/10 ML INJ MDV ONE (12:35)
[2022-01-03] MEDS ORDERED: GLYCOPYRROLATE 0.4 MG/2 ML INJ ONE (12:35)
[2022-01-03] MEDS ORDERED: LIDOCAINE (1%) 10 MG/1 ML VIAL 20 ML MDV INFILTRATI ONE (12:54)
--- NOTE | 2022-01-03 13:34 | Operative Report ---
Operative Report Operative Report: Date: 01/03/2022 Preop diagnosis: cholecystitis with cholelithiasis Postop diagnosis: same Procedure: Laparoscopic cholecystectomy without cholangiogram Surgeon: Dr. Bartlett Account Executive Key Accounts: Dr. Garcia Anesthesia type: General endotracheal anesthesia Estimated blood loss: 10 cc Specimen: Gallbladder and stone Procedure: Patient is taken to the OR and after timeout are completed the abdomen was prepped with ChloraPrep and draped in a sterile fashion. A 3 mm incision is made in the left upper quadrant and a Veress needle was used to gain access to the abdominal cavity. Abdomen is insufflated with CO2. 2 additional 5 mm ports were placed one in the right lateral subcostal position and one in a supraumbilical position. In the subxiphoid position a 12 mm port is placed. Gallbladder graspers are used through the right subcostal ports. Adhesions over the top of the liver on the right side are noted. The gallbladder was retracted superiorly anteriorly and laterally. The peritoneal reflection and adventitia are dissected with a cautery hook and the harmonic scalpel to expose the cystic duct and cystic artery as well as the cystic cleft. Critical view of safety is demonstrated. The cystic artery is clipped and divided. A clip was placed on the cystic duct at its junction with the gallbladder. 3 clips were placed on the distal cystic duct. The cystic duct was then divided. The gallbladder was dissected off the gallbladder fossa It was then extracted after being placed in a specimen bag through the subxiphoid port. Hemostasis is good as and is improved with the electrocautery hook. The right upper quadrant irrigated with copious amounts of saline and then aspirated. Sponge and needle counts are noted to be correct at this time. Electrocautery hook is used for hemostasis at the gallbladder fossa. A Avnera system was used to close the subxiphoid incision with an 0 Vi cryl suture. The skin is closed with 4-0 Monocryl and Dermabond. Patient tolerated procedure well.
--- NOTE | 2022-01-03 14:30 | Progress Note ---
Assessment and Plan Assessment and plan: #Acute cholecystitis #Elevated transaminases Continue analgesics as needed Continue IV fluid resuscitation (D5 half-normal saline at 100 cc/h) General surgery consulted; appreciate recs. Planning for laparoscopic cholecystectomy on 01/03/2022. Discontinuing Zosyn 4.5 g every 6 hours after procedure. Patient can be restarted on diet per general surgery after procedure. Continue to monitor. #Uterine fibroid Incidentally found on CT abdomen and pelvis. Patient can follow-up with outpatient gynecology #Advanced care planning -Disease education conducted, care plan discussed, diagnoses discussed, prognosis discussed, and patient acknowledges understanding with care plan -Time: +30 min #Discharge planning - Patient is pending 24 hours postop (assuming patient has no complications from laparoscopic cholecystectomy) - Case management has been made aware. - Discharge is tentatively tomorrow Disposition Plan: Continue medical management Total Time Spent with Patient (Minutes): 45 minutes History Interval history: No acute events overnight. Hospitalist Physical - Constitutional Vitals: Temp Pulse Resp BP Pulse Ox 98.0 F 77 16 108/61 96 01/03/22 13:30 01/03/22 14:13 01/03/22 14:13 01/03/22 13:30 01/03/22 13:30 General appearance: Present: no acute distress, well-nourished - EENT Eyes: Present: PERRL, EOM intact ENT: hearing intact, clear oral mucosa, dentition normal - Neck Neck: Present: supple, normal ROM - Respiratory Respiratory effort: normal Respiratory: bilateral: CTA - Cardiovascular Rhythm: regular Heart Sounds: Present: S1 & S2 - Extremities Extremities: no ischemia, pulses intact, pulses symmetrical, No edema, normal temperature, normal color, Full ROM Peripheral Pulses: within normal limits - Abdominal General gastrointestinal: soft, tender, non-distended, normal bowel sounds Localized gastrointestinal: tender: diffuse, RUQ - Integumentary Integumentary: Present: clear, warm, dry - Psychiatric Psychiatric: appropriate mood/affect, intact judgment & insight, memory intact, cooperative - Neurologic Neurologic: CNII-XII intact, moves all extremities - Allied Health Allied health notes reviewed: nursing HEART Score - HEART Score Troponin: Troponin T < 0.010 ng/mL (0.00-0.029) 01/02/22 14:25 Results - Labs CBC & Chem 7: 01/03/22 06:00 01/03/22 06:00 Labs: Laboratory Last Values WBC 8.9 K/mm3 (4.5-11.0) 01/03/22 06:00 RBC 3.67 M/mm3 (3.65-5.03) 01/03/22 06:00 Hgb 10.8 gm/dl (10.1-14.3) 01/03/22 06:00 Hct 32.5 % (30.3-42.9) D 01/03/22 06:00 MCV 89 fl (79-97) 01/03/22 06:00 MCH 30 pg (28-32) 01/03/22 06:00 MCHC 33 % (30-34) 01/03/22 06:00 RDW 13.8 % (13.2-15.2) 01/03/22 06:00 Plt Count 240 K/mm3 (140-440) 01/03/22 06:00 Lymph % (Auto) 16.4 % (13.4-35.0) 01/03/22 06:00 [place] % (Auto) 12.2 % (0.0-7.3) H 01/03/22 06:00 Eos % (Auto) 2.3 % (0.0-4.3) 01/03/22 06:00 Baso % (Auto) 0.5 % (0.0-1.8) 01/03/22 06:00 Lymph # (Auto) 1.5 K/mm3 (1.2-5.4) 01/03/22 06:00 [place] # (Auto) 1.1 K/mm3 (0.0-0.8) H 01/03/22 06:00 Eos # (Auto) 0.2 K/mm3 (0.0-0.4) 01/03/22 06:00 Baso # (Auto) 0.0 K/mm3 (0.0-0.1) 01/03/22 06:00 Seg Neutrophils % 68.6 % (40.0-70.0) 01/03/22 06:00 Seg Neutrophils # 6.1 K/mm3 (1.8-7.7) 01/03/22 06:00 Sodium 138 mmol/L (137-145) D 01/03/22 06:00 Potassium 3.1 mmol/L (3.6-5.0) L 01/03/22 06:00 Chloride 101.7 mmol/L (98-107) 01/03/22 06:00 Carbon Dioxide 25 mmol/L (22-30) 01/03/22 06:00 Anion Gap 14 mmol/L 01/03/22 06:00 BUN 6 mg/dL (7-17) L 01/03/22 06:00 Creatinine 0.7 mg/dL (0.6-1.2) 01/03/22 06:00 Estimated GFR > 60 ml/min 01/03/22 06:00 BUN/Creatinine Ratio 9 % 01/03/22 06:00 Glucose 123 mg/dL (65-100) H 01/03/22 06:00 Calcium 8.6 mg/dL (8.4-10.2) 01/03/22 06:00 Total Bilirubin 0.80 mg/dL (0.1-1.2) 01/02/22 11:26 AST 73 units/L (5-40) H 01/02/22 11:26 ALT 75 units/L (7-56) H 01/02/22 11:26 Alkaline Phosphatase 125 units/L (35-129) 01/02/22 11:26 Troponin T < 0.010 ng/mL (0.00-0.029) 01/02/22 14:25 Total Protein 7.6 g/dL (6.3-8.2) 01/02/22 11:26 Albumin 4.6 g/dL (3.9-5) 01/02/22 11:26 Albumin/Globulin Ratio 1.5 % 01/02/22 11:26 Amylase 40 units/L (27-131) 01/02/22 20:00 Lipase 44 units/L (13-60) 01/02/22 20:00 Urine Color Yellow (Yellow) 01/02/22 17:37 Urine Turbidity Hazy (Clear) 01/02/22 17:37 Urine pH 6.0 (5.0-7.0) 01/02/22 17:37 Ur Specific [place] 1.020 (1.003-1.030) 01/02/22 17:37 Urine Protein <15 mg/dl mg/dL (Negative) 01/02/22 17:37 Urine Glucose (UA) Negative mg/dL (Negative) 01/02/22 17:37 Urine Ketones Negative mg/dL (Negative) 01/02/22 17:37 Urine Blood Negative (Negative) 01/02/22 17:37 Urine Nitrite Negative (Negative) 01/02/22 17:37 Ur Reducing Substances Not Reportable 01/02/22 17:37 Urine Bilirubin Negative (Negative) 01/02/22 17:37 Urine Ictotest Not Reportable 01/02/22 17:37 Urine Urobilinogen < 2.0 mg/dL (<2.0) 01/02/22 17:37 Ur Leukocyte Esterase Negative (Negative) 01/02/22 17:37 Urine WBC (Auto) 2.0 /HPF (0.0-6.0) 01/02/22 17:37 Urine RBC (Auto) 2.0 /HPF (0.0-6.0) 01/02/22 17:37 U Epithel Cells (Auto) 1.0 /HPF (0-13.0) 01/02/22 17:37 Urine Bacteria (Auto) 1+ /HPF (Negative) 01/02/22 17:37 Ramon/IV: Voiding Method Toilet Active Medications - Current Medications Current Medications: Generic Name Dose Route Start Last Admin Trade Name Freq PRN Reason Stop Dose Admin Acetaminophen 650 mg 01/02/22 21:48 Acetaminophen 325 Mg Tab PO Q4H PRN Pain MILD(1-3)/Fever >100.5/WOOD Albuterol 2.5 mg 01/02/22 21:48 Albuterol 2.5 Mg/3 Ml Nebu IH Q3HRT PRN Shortness Of Breath Albuterol/Ipratropium 1 ampul 01/03/22 02:00 01/03/22 14:13 Ipratropium/Albuterol Sulfate 3 Ml Ampul.Neb IH 1 ampul Q6HRT [facility] Administration Famotidine 20 mg 01/02/22 22:00 01/03/22 11:18 Famotidine 20 Mg/2 Ml Inj IV 20 mg BID [facility] Administration Heparin Sodium (Porcine) 5,000 unit 01/03/22 14:00 Heparin 5,000 Unit/1 Ml Vial SUB-Q Q8HR [facility] Morphine Sulfate 2 mg 01/02/22 21:48 01/03/22 03:58 Morphine 2 Mg/1 Ml Inj IV 2 mg Q4H PRN Administration Pain, Moderate (4-6) Morphine Sulfate 4 mg 01/02/22 21:48 01/03/22 10:06 Morphine 4 Mg/1 Ml Inj IV 4 mg Q4H PRN Administration Pain , Severe (7-10) Ondansetron HCl 4 mg 01/02/22 21:48 Ondansetron 4 Mg/2 Ml Inj IV Q8H PRN Nausea And Vomiting Sodium Chloride 10 ml 01/02/22 22:00 01/02/22 23:12 Sodium Chloride 0.9% 10 Ml Flush Syringe IV 10 ml BID [facility] Administration Sodium Chloride 10 ml 01/02/22 21:48 Sodium Chloride 0.9% 10 Ml Flush Syringe IV PRN PRN LINE FLUSH
[2022-01-03] MEDS: HEPARIN 5,000 UNIT/1 ML VIAL SUB-Q SCH ×2 (15:30→21:15)
[2022-01-04] MEDS: MORPHINE 2 MG/1 ML INJ IV PRN ×2 (00:56→06:39)
[2022-01-04] MEDS: HEPARIN 5,000 UNIT/1 ML VIAL SUB-Q SCH (06:35)
[2022-01-04 06:38] LABS: Basophils % (Auto) 0.2 % (0.0-1.8); Eosinophils % (Auto) 0.1 % (0.0-4.3); Hematocrit 32.7 % (30.3-42.9); Hemoglobin 10.8 gm/dl (10.1-14.3); Lymphocytes # (Auto) 1.2 K/mm3 (1.2-5.4); Lymphocytes % (Auto) 11.3 % (13.4-35.0); Mean Corpuscular HGB Conc 33 % (30-34); Mean Corpuscular Volume 89 fl (79-97); Monocytes # (Auto) 0.8 K/mm3 (0.0-0.8); Monocytes % (Auto) 7.3 % (0.0-7.3); Platelet Count 252 K/mm3 (140-440); Red Blood Count 3.68 M/mm3 (3.65-5.03); Red Cell Distribution Width 13.6 % (13.2-15.2)
[2022-01-04 06:57] LABS: Blood Urea Nitrogen 4 mg/dL (7-17); Calcium 9.1 mg/dL (8.4-10.2); Hemolysis Index 1
[2022-01-04 07:00] LABS: BUN/Creatinine Ratio 7
--- NOTE | 2022-01-04 08:08 | Progress Note ---
Assessment and Plan Status post laparoscopic cholecystectomy yesterday patient feels much better. She has not had any regular diet history. She should have a regular breakfast [employer] discharged this morning. 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 Follow-up with me in 1 week. Subjective Date of service: 01/04/22 Patient Reports: Positive: no new complaints, feels better, still having pain Objective Vital Signs - 12hr 01/03/22 01/03/22 01/03/22 20:21 22:00 23:26 Temperature 98.3 F 99.0 F Pulse Rate 82 66 Respiratory 20 20 18 Rate Blood Pressure 119/69 119/64 O2 Sat by Pulse 100 97 98 Oximetry 01/04/22 04:27 Temperature 98.1 F Pulse Rate 75 Respiratory 18 Rate Blood Pressure 109/68 O2 Sat by Pulse 97 Oximetry - Labs 01/04/22 06:17 01/04/22 04:00 Diabetes panel 01/04/22 Range/Units 04:00 Sodium 140 (137-145) mmol/L Potassium 4.3 D (3.6-5.0) mmol/L Chloride 102.0 (98-107) mmol/L Carbon Dioxide 29 (22-30) mmol/L BUN 4 L (7-17) mg/dL Creatinine 0.6 (0.6-1.2) mg/dL Glucose 132 H (65-100) mg/dL Calcium 9.1 (8.4-10.2) mg/dL Calcium panel 01/04/22 Range/Units 04:00 Calcium 9.1 (8.4-10.2) mg/dL Pituitary panel 01/04/22 Range/Units 04:00 Sodium 140 (137-145) mmol/L Potassium 4.3 D (3.6-5.0) mmol/L Chloride 102.0 (98-107) mmol/L Carbon Dioxide 29 (22-30) mmol/L BUN 4 L (7-17) mg/dL Creatinine 0.6 (0.6-1.2) mg/dL Glucose 132 H (65-100) mg/dL Calcium 9.1 (8.4-10.2) mg/dL Adrenal panel 01/04/22 Range/Units 04:00 Sodium 140 (137-145) mmol/L Potassium 4.3 D (3.6-5.0) mmol/L Chloride 102.0 (98-107) mmol/L Carbon Dioxide 29 (22-30) mmol/L BUN 4 L (7-17) mg/dL Creatinine 0.6 (0.6-1.2) mg/dL Glucose 132 H (65-100) mg/dL Calcium 9.1 (8.4-10.2) mg/dL
--- NOTE | 2022-01-04 08:32 | Discharge Summary ---
Providers - Providers Date of Admission: 01/02/22 21:49 Date of discharge: 01/04/22 Attending physician: SHAYLEE MCHUGH MD 01/02/22 19:39 Consult to Physician [CONS] Urgent Comment: Consulting Provider: FEDERICO SAMAYOA Physician Instructions: Reason For Exam: Acute cholecystitis Primary care physician: ONOFRE INIGUEZ Hospitalization Reason for admission: Acute cholecystitis Condition: Good Hospital course: Patient is a 51-year-old female with history of fibroids who presented with abdominal pain. CT of the abdomen pelvis revealed findings consistent with acute cholecystitis. General surgery was consulted and laparoscopic cholecystectomy was performed. Postprocedure, her labs normalized and patient was able to tolerate meals. Once she was stable, she was discharged home. Disposition: 30 STILL A PATIENT Final Discharge Diagnosis (Prints w/discharge instructions): Acute cholecystitis. Uterine fibroids Time spent for discharge: 25 minutes Core Measure Documentation - Palliative Care Palliative Care/ Comfort Measures: Not Applicable - Core Measures Any of the following diagnoses?: none Exam - Physical Exam Narrative exam: GENERAL: Well-developed well-nourished. In no acute distress. HEENT: Edentulous. NECK: Supple. CHEST/LUNGS: CTAB on room air HEART/CARDIOVASCULAR: RRR. No murmur, rubs or gallops appreciated. ABDOMEN: +BS. NT/ND. SKIN: No rashes noted. NEURO: No focal motor deficit. Follows all commands. MUSCULOSKELETAL: No joint effusion EXTREMITIES: No cyanosis, clubbing or edema. PSYCH: Cooperative. - Constitutional Vitals: Temp Pulse Resp BP Pulse Ox 98.1 F 75 18 109/68 97 01/04/22 04:27 01/04/22 04:27 01/04/22 04:27 01/04/22 04:27 01/04/22 04:27 Plan Care Plan Goals: Please follow up with Dr. Samayoa, the surgeon within the next 1-2 weeks. If you develop fever, pus drainage from your incision sites and/or severe pain, please return to the ED. Follow up with: ONOFRE INIGUEZ MD [Primary Care Provider] - 3-5 Days FEDERICO SAMAYOA MD [Staff Physician] - 7 Days Forms: Work/School Release Form Prescriptions: HYDROcodone/APAP 5-325 [[place] 5/325] 1 each PO Q6HR PRN #16 tablet PRN Reason: Pain
[2022-01-04] MEDS ORDERED: FAMOTIDINE 20 MG TAB PO SCH (10:00)
[2022-01-04 10:29] VITALS: BP 113/61
--- NOTE | 2022-01-06 18:03 | Electrocardiograph Report ---
[facility] Test Date: 2022-01-03 Test Time: 10:11:17 Pat Name: ARUN SHETH Department: Room: A486 1 Gender: F [employer] Technician: CHANA : 1970 Requested By: MIA AUGUSTINE Order Number: [id number] Reading MD: Nathalie Santiago Measurements Intervals [place] Rate: 77 P: 57 [place]: 148 QRS: 48 QRSD: 73 T: 12 QT: 393 QTc: 444 Interpretive Statements Sinus rhythm Frequent ventricular ectopy Left atrial enlargement Compared to ECG 01/02/2022 11:01:53 No significant change Electronically Signed On 01-06-2022 18:03:10 EDT by Nathalie Santiago
== END 2022-01-04 15:46 | disposition home or self-care (01) | DRG 419 ==
LOC: ED 10:44 → INTOOBSV 21:49 → MERGE 21:49 → 3A 21:49 → 4A 01-03 02:21 → OBSVTOIN 01-04 11:18
PROVIDERS: ADMIT Hospitalist; ATTEND Student in an Organized Health Care Education/Training Program
PROC: 0FT44ZZ Resection of Gallbladder, Percutaneous Endoscopic Approach (ICD-10-PCS; principal; 2022-01-03)
DX: K80.00 Calculus of gallbladder with acute cholecystitis without obstruction (principal); R74.01 Elevation of levels of liver transaminase levels; D25.9 Leiomyoma of uterus, unspecified; Z90.710 Acquired absence of both cervix and uterus; Z82.49 Family history of ischemic heart disease and other diseases of the circulatory system; Z87.891 Personal history of nicotine dependence; Z88.6 Allergy status to analgesic agent
CPT/HCPCS: 36415; 71046; 74177; 80048; 80053; 81001; 82150; 83690; 84484; 85025; 87075; 87116; 88304; 93005; 94640; G0378; J1815; J3490; J7070; J1100; J1170; J1644; J1885; J2250; J2270; J2405; J2543; J2704; J2710; J3010; J3480; J7030; J7120; Q9967